=== PATIENT | female | born 1930 | race Caucasian/White ===

== ENCOUNTER 2019-08-10 11:52 | Emergency (ER) | payer MEDICARE ==
[~2019-08-10] VITALS: Ht 154.9 cm; Wt 73.5 kg
--- OUTSIDE RECORDS SUMMARY | ~2019-08-10 | XMS | Clinical Summary ---
Demographics + + + | Address | [address] | | | [place] [address] | + + + | Home Phone | | + + + | Preferred Language | Unknown | + + + | Marital Status | | + + + | Christianity Affiliation | Unknown | + + + | Race | Unknown | + + + | Ethnic Group | Unknown | + + + Author + + + | Author | [facility] (Historical as of | | | 06-22-19) | + + + | Organization | [facility] (Historical as of | | | 06-22-19) | + + + | Address | Unknown | + + + | Phone | Unavailable | + + + Care Team Providers + +------+ + | Care Bag Checker Name | Role | Phone | + +------+ + PP | Unavailable | + +------+ + Allergies Not on File Current Medications Not on file Active Problems Not on file Social History + +-------+ +--------+------+ | Tobacco Use | Types | Packs/Day | Years | Date | | | | | Used | | + +-------+ +--------+------+ | Never Assessed | | | | | + +-------+ +--------+------+ + + + | Sex Assigned at | Date Recorded | | | | + + + | Not on file | | + + + Plan of Treatment + + + + + | Health Maintenance | Due Date | Last Done | Comments | + + + + + | Vaccine: | | | | | Dtap/Tdap/Td (1 - | 0 | | | | Tdap) | | | | + + + + + | Vaccine: Zoster (1 | | | | | of 2) | 1 | | | + + + + + | DEXA SCAN SCREENING | | | | | | 6 | | | + + + + + | Vaccine: | | | | | Pneumococcal 65+ | 6 | | | | Low/Medium Risk (1 | | | | | of 2 - PCV13) | | | | + + + + + | Vaccine: Influenza | | | | | (#1) | 9 | | | + + + + + Results Not on filefrom Last 3 Months Insurance + +--------+ +------+-------+ + | Payer | Benefi | Subscriber | Type | Phone | Address | | | t Plan | ID | | | | | | / | | | | | | | Group | | | | | + +--------+ +------+-------+ + | [facility] | [place] | [id number] | | | | | | | | | | | | | HEALTH | | | | | | | CARE - | | | | | | | AARP | | | | | + +--------+ +------+-------+ + | MEDICARE | MEDICA | [id number] | | | [address] | | | RE | | | | [place] [address] | | | IP-OP | | | | | + +--------+ +------+-------+ + + +--------+ +--------+ + + | Guarantor Name | Accoun | Relation to | Date | Phone | Billing Address | | | t Type | Patient | of | | | | | | | | | | + +--------+ +--------+ + + | DIONE MALDONADO | Person | Self | [birth year] | 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
--- OUTSIDE RECORDS SUMMARY | ~2019-08-10 | XMS | Clinical Summary ---
Demographics + + + | Address | [address] | | | [place] [address] | + + + | Home Phone | | + + + | Preferred Language | Unknown | + + + | Marital Status | | + + + | Spiritism Affiliation | Unknown | + + + | Race | Unknown | + + + | Ethnic Group | Unknown | + + + Author + + + | Author | [facility] | | | and [place] | + + + | Organization | 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 For more information, please contact:[facility] [place] [address] + + + + + | Code Status | Date | Date | Comments | | | Activated | Inactivated | | + + + + + | Full Code | 07/05/2016 | 07/06/2016 | | | | 11:11 | 12:53 | | + + + + +
--- OUTSIDE RECORDS SUMMARY | ~2019-08-10 | XMS | Clinical Summary ---
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 For more information, please contact:[facility] [place] [address] + + + + + | Code Status | Date | Date | Comments | | | Activated | Inactivated | | + + + + + | Full Code | 07/05/2016 | 07/06/2016 | | | | 11:11 | 12:53 | | + + + + +
--- OUTSIDE RECORDS SUMMARY | ~2019-08-10 | XMS | Clinical Summary ---
Demographics + + + | Address | [address] | | | [place] [address] | + + + | Home Phone | | + + + | Preferred Language | Unknown | + + + | Marital Status | | + + + | Restorationism Affiliation | Unknown | + + + | Race | Unknown | + + + | Ethnic Group | Unknown | + + + Author + + + | Author | [facility] (Historical as of | | | 06-22-19) | + + + | Organization | [facility] (Historical as of | | | 06-22-19) | + + + | Address | Unknown | + + + | Phone | Unavailable | + + + Care Team Providers + +------+ + | Care Maintenance Mechanic Name | Role | Phone | + [...] | | + +--------+ +------+-------+ + | [facility] | [place] | [phone] | | | | | | | | | | | | | HEALTH | | | | | | | CARE - | | | | | | | AARP | | | | | + +--------+ +------+-------+ + | MEDICARE | MEDICA | [id number] | | | [address] | | | RE | | | | [place] [phone] | | | IP-OP | | | [...] | | al/Fam | | 1930 | [phone] | [place] [address] | | | cecilio | | | [address]: | | | | | | | | | | | | | | [phone] | | | | | | | 1095 | | + +--------+ +--------+ + +"
[~2019-08-10 11:52] MED LIST: CARTIA XT120 MG PO; CELECOXIB200 MG PO; COREG6.25 MG PO; COUMADIN6 MG PO; DICLOFENAC SOD100 G1 TOP; DIGOXIN125 MCG PO; DILTIAZEM HCL120 MG PO; FUROSEMIDE40 MG PO; LISINOPRIL20 MG PO; NORCO 5-325 TA1 EACH PO; PROZAC10 MG PO; SYNTHROID75 MCG PO; SYNTHROID88 MCG PO; TRAMADOL HCL50 MG
[2019-08-10] MEDS ORDERED: LISINOPRIL40 MG PO (14:27)
--- NOTE | 2019-08-10 14:53 | EKG ---
[facility] [address] [facility] [place], [place] [address] Signed Sinus rhythm with occasional premature ventricular complexes Left ventricular hypertrophy with repolarization abnormality Inferior infarct , age undetermined Abnormal ECG No previous ECGs available Confirmed by CIERA NARVAEZ DO ([id number]) on 08/10/2019 2:53:38 PM Electronically Signed By: CIERA NARVAEZ DO 08/10/19 1453 PATIENT NAME: DIONE KLINE Electrocardiogram DATE OF : [birth year] PHYSICIAN: CIERA NARVAEZ DO REPORT #: [id number] REPORT IS CONFIDENTIAL AND NOT TO BE RELEASED WITHOUT AUTHORIZATION
== END 2019-08-10 15:20 | disposition home or self-care (01) ==
LOC: ED 11:52
DX: R53.1 Weakness (principal); I10 Essential (primary) hypertension; I48.91 Unspecified atrial fibrillation; E03.9 Hypothyroidism, unspecified; Z88.0 Allergy status to penicillin; Z88.8 Allergy status to other drugs, medicaments and biological substances; Z79.899 Other long term (current) drug therapy; Z79.01 Long term (current) use of anticoagulants
CPT/HCPCS: 71045; 80053; 84484; 85025; 93005; 93010; 96374; 96376; 99285-25

== ENCOUNTER 2019-08-24 09:35 | Emergency (ER) | payer MEDICARE ==
[~2019-08-24] VITALS: Ht 154.9 cm; Wt 73.5 kg
--- OUTSIDE RECORDS SUMMARY | ~2019-08-24 | XMS | Clinical Summary ---
Demographics + + + | Address | [address] | | | [place] [address] | + + + | Home Phone | | + + + | Preferred Language | Unknown | + + + | Marital Status | | + + + | Quaker Affiliation | Unknown | + + + | Race | Unknown | + + + | Ethnic Group | Unknown | + + + Author + + + | Author | [facility] | | | and [place] | + + + | Organization | [facility] | | | and [place] | + + + | Address | Unknown | + + + | Phone | Unavailable | + + + Support + + +---------+ + | Name | Relationship | Address | Phone | + + +---------+ + | Markell Daly | ECON | Unknown | | + + +---------+ + Care Team Providers + +------+ + | Care Senior Sas Programmer Name | Role | Phone | + +------+ + | Elizabeth Smiley | PCP | | + +------+ + Allergies + + + + + + | Active Allergy | Reactions | Severity | Noted | Comments | | | | | Date | | + + + + + + | Celecoxib | Hives, Rash | Low | 06/27/20 | | | | | | 16 | | + + + + + + | Penicillins | Hives, Rash | Low | 06/27/20 | | | | | | 16 | | + + + + + + Medications + + + +---------+------+------+-------+ | Medication | Sig | Dispensed | Refills | Star | End | Statu | | | | | | t | Date | s | | | | | | Date | | | + + + +---------+------+------+-------+ | acetaminophen | Take 650 mg by mouth | | 0 | | | Activ | | (TYLENOL ARTHRITIS | every 8 hours as | | | | | e | | PAIN) 650 MG CR | needed for Pain. | | | | | | | tablet | | | | | | | + + + +---------+------+------+-------+ | furosemide (LASIX) | Take 40 mg by mouth | | 0 | | | Activ | | 40 mg tablet | Daily. | | | | | e | + + + +---------+------+------+-------+ | lisinopril | Take 20 mg by mouth | | 0 | | | Activ | | (PRINIVIL, ZESTRIL) | 2 times daily. | | | | | e | | 20 mg tablet | | | | | | | + + + +---------+------+------+-------+ | Multiple | Take by mouth. | | 0 | | | Activ | | Vitamins-Minerals | | | | | | e | | (PRESERVISION AREDS) | | | | | | | | CAPS | | | | | | | + + + +---------+------+------+-------+ | | Take 1 tablet by | | 0 | 07/2 | | Activ | | HYDROcodone-acetamin | mouth every 6 hours | | | 9/20 | | e | | ophen (NORCO) | as needed for Pain. | | | 16 | | | | 7.5-325 mg per | | | | | | | | tablet | | | | | | | + + + +---------+------+------+-------+ | diltiazem | Take 120 mg by mouth | | 0 | | | Activ | | (CARDIZEM CD) 120 mg | every evening. | | | | | e | | 24 hr capsule | | | | | | | + + + +---------+------+------+-------+ | lactulose 10 g/15 | Take 30 mLs by mouth | 240 mL | 2 | 08/3 | | Activ | | mL solution | Daily as needed. | | | 1/20 | | e | | | | | | 16 | | | + + + +---------+------+------+-------+ | | Take 1-2 tablets by | 120 | 0 | 08/3 | | Activ | | oxyCODONE-acetaminop | mouth every 4 hours | tablet | | 1/20 | | e | | hen (PERCOCET) 5-325 | as needed for Pain. | | | 16 | | | | mg per tablet | | | | | | | + + + +---------+------+------+-------+ | levothyroxine | TAKE 1 TABLET EVERY | 90 | 3 | 08/0 | | Activ | | (SYNTHROID) 75 MCG | DAY | tablet | | 7/20 | | e | | tablet | | | | 18 | | | + + + +---------+------+------+-------+ | digoxin (LANOXIN) | TAKE 1 TABLET EVERY | 90 | 3 | 08/0 | | Activ | | 125 mcg tablet | DAY | tablet | | 720 | | e | | | | | | 18 | | | + + + +---------+------+------+-------+ Active Problems + + + | Problem | Noted Date | + + + | H/O total knee replacement, left | 07/04/2016 | + + + | H/O Hysterectomy | 07/04/2016 | + + + | Neoplasm of thoracic spine | 07/04/2016 | + + + + + | Overview: MRI from 2015 shows chronic degenerative changes | | and a posterior T12 based extradural lesion dark on T1 and bright | | on T2 imaging | + + + + + | Class I, BMI 30-34.9 | 07/04/2016 | + + + | 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 | 07/04/2016 | + + + | Atrial fibrillation | | + + + | Benign hypertension | | + + + | Subclinical hypothyroidism | | + + + | Dyslipidemia | | + + + | Acquired cyst of kidney | | + + + | Spondylosis, lumbosacral region | | + + + | Chronic lower back pain | | + + + Family History + + +------+ + | Medical History | Relation | Name | Comments | + + +------+ + | No known problems | Child | | | + + +------+ + | No known problems | Child | | | + + +------+ + | Brain aneurysm | Father | | | + + +------+ + | Stroke | Maternal | | | | | Aunt | | | + + +------+ + | No known problems | Maternal | | | | | Grandfath | | | | | er | | | + + +------+ + | No known problems | Maternal | | | | | Grandmoth | | | | | er | | | + + +------+ + | Colon cancer | Mother | | | + + +------+ + | No known problems | Paternal | | | | | Grandfath | | | | | er | | | + + +------+ + | No known problems | Paternal | | | | | Grandmoth | | | | | er | | | + + +------+ + | Bleeding problems | Sister | | blood clot | + + +------+ + + +------+--------+ + | Relation | Name | Status | Comments | + +------+--------+ + | Child | | | | + +------+--------+ + | Child | | | | + +------+--------+ + | Father | | | | + +------+--------+ + | Maternal Aunt | | | | + +------+--------+ + | Maternal Grandfather | | | | + +------+--------+ + | Maternal Grandmother | | | | + +------+--------+ + | Mother | | | | + +------+--------+ + | Paternal Grandfather | | | | + +------+--------+ + | Paternal Grandmother | | | | + +------+--------+ + | Sister | | | | + +------+--------+ + Social History + +-------+ +--------+------+ | Tobacco Use | Types | Packs/Day | Years | Date | | | | | Used | | + +-------+ +--------+------+ | Never Smoker | | | | | + +-------+ +--------+------+ + +---+---+---+ | Smokeless Tobacco: | | | | | Never Used | | | | + +---+---+---+ + + +---------+ + | Alcohol Use | Drinks/We | oz/Week | Comments | | | ek | | | + + +---------+ + | Yes | 0 | 0.6 | | | | Standard | | | | | drinks or | | | | | | | | | | equivalen | | | | | t 1 Cans | | | | | of beer | | | + + +---------+ + + + + | Sex Assigned at | Date Recorded | | | | + + + | Not on file | | + + + + + + + | Job Start Date | Occupation | Industry | + + + + | Not on file | Not on file | Not on file | + + + + + + + + | Travel History | Travel Start | Travel End | + + + + + + | No recent travel history available. | + + Last Filed Vital Signs + + + + | Vital Sign | Reading | Time Taken | + + + + | Blood Pressure | 138/78 | 08/03/20161023 PDT | + + + + | Pulse | 77 | 08/03/20161023 PDT | + + + + | Temperature | 35.6 C (96.1 F) | 07/06/2016744 PDT | + + + + | Respiratory Rate | 16 | 07/06/2016744 PDT | + + + + | Oxygen Saturation | 96% | 07/06/2016744 PDT | + + + + | Inhaled Oxygen | - | - | | Concentration | | | + + + + | Weight | 79.9 kg (176 lb 3.2 | 08/03/20161023 PDT | | | oz) | | + + + + | Height | 154.9 cm (5' 1") | 08/03/20161023 PDT | + + + + | Body Mass Index | 33.29 | 08/03/20161023 PDT | + + + + Plan of Treatment + [...] | + + + + + | Adult Annual | | | | | Wellness Visit | 5 | | | + + + + + | Primary Care | | 06/28/2016 | | | Outreach (Intense | 6 | | | | Risk) | | | | + + + + + | Vaccine: Influenza | | | | | (#1) | 9 | | | + + + + + Results Not on filefrom Last 3 Months Insurance + +--------+ +--------+ +---------+--------+ | Payer | Benefi | Subscriber | Effect | Phone | Address | Type | | | t Plan | ID | jaida | | | | | | / | | Dates | | | | | | Group | | | | | | + +--------+ +--------+ +---------+--------+ | MEDICARE | MEDICA | [id number] | 04/06/19 | [phone] | | Medica | | | RE | | 96-Pre | 5 | | re | | | PART A | | sent | | | | | | AND B | | | | | | + +--------+ +--------+ +---------+--------+ | AARP | AARP | [id number] | 05/06/20 | [phone] | | Indemn | | | MDCR | | 16-Pre | 0 | | ity | | | SUPPL | | sent | | | | + +--------+ +--------+ +---------+--------+ + +--------+ +--------+ + + | Guarantor Name | Accoun | Relation to | Date | Phone | Billing Address | | | t Type | Patient | of | | | | | | | | | | + +--------+ +--------+ + + | Ayde Maldonado | Person | Self | [birth year] | [address] | | [place] | al/Fam | | 1930 | [phone] | [place] [address] | | | cecilio | | | 5 (Home) | | + +--------+ +--------+ + + Advance Directives Patient has advance care planning documents, and code status on file. For more information, please contact:[facility] [place] [address] + + + + + | Code Status | Date | Date | Comments | | | Activated | Inactivated | | + + + + + | Full Code | 07/05/2016 | 07/06/2016 | | | | 11:11 | 12:53 | | + + + + +
--- OUTSIDE RECORDS SUMMARY | ~2019-08-24 | XMS | Clinical Summary ---
Demographics + + + | Address | [address] | | | [place] [address] | + + + | Home Phone | | + + + | Preferred Language | Unknown | + + + | Marital Status | | + + + | Mosque Affiliation | Unknown | + + + | Race | Unknown | + + + | Ethnic Group | Unknown | + + + Author + + + | Author | [facility] (Historical as of | | | 06-22-19) | + + + | Organization | [facility] (Historical as of | | | 06-22-19) | + + + | Address | Unknown | + + + | Phone | Unavailable | + + + Care Team Providers + +------+ + | Care Turntable Worker Name | Role | Phone | + [...] | | + +--------+ +------+-------+ + | [facility] | [place] | [id number] | | | | | | | | | | | | | HEALTH | | | | | | | CARE - | | | | | | | AARP | | | | | + +--------+ +------+-------+ + | MEDICARE | MEDICA | [id number] | | | [address] | | | RE | | | | [place] [address] | | | IP-OP | | | [...] | | al/Fam | | 1930 | [phone] | [place] [address] | | | cecilio | | | [address]: | | | | | | | | | | | | | | [phone] | | | | | | | 1095 | | + +--------+ +--------+ + +"
--- OUTSIDE RECORDS SUMMARY | ~2019-08-24 | XMS | Clinical Summary ---
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 For more information, please contact:[facility] [place] [address] + + + + + | Code Status | Date | Date | Comments | | | Activated | Inactivated | | + + + + + | Full Code | 07/05/2016 | 07/06/2016 | | | | 11:11 | 12:53 | | + + + + +
--- OUTSIDE RECORDS SUMMARY | ~2019-08-24 | XMS | Clinical Summary ---
Demographics + + + | Address | [address] | | | [place] [address] | + + + | Home Phone | | + + + | Preferred Language | Unknown | + + + | Marital Status | | + + + | Hoahaoism Affiliation | Unknown | + + + | Race | Unknown | + + + | Ethnic Group | Unknown | + + + Author + + + | Author | [facility] (Historical as of | | | 06-22-19) | + + + | Organization | [facility] (Historical as of | | | 06-22-19) | + + + | Address | Unknown | + + + | Phone | Unavailable | + + + Care Team Providers + +------+ + | Care Information Officer Name | Role | Phone | + [...] | | + +--------+ +------+-------+ + | [facility] | [place] | [id number] | | | | | | | | | | | | | HEALTH | | | | | | | CARE - | | | | | | | AARP | | | | | + +--------+ +------+-------+ + | MEDICARE | MEDICA | [id number] | | | [address] | | | RE | | | | [place] [address] | | | IP-OP | | | [...] | | al/Fam | | 1930 | [phone] | [place] [address] | | | cceilio | | | [phone]: | | | | | | | | | | | | | | [phone] | | | | | | | 1095 | | + +--------+ +--------+ + +"
[~2019-08-24 09:35] MED LIST changes: +LISINOPRIL40 MG PO
--- OUTSIDE RECORDS SUMMARY | 2019-08-24 09:38 | XMS ---
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 - 2 Visits in 30 Days CARE PROVIDERS Elizabeth Smiley PA-C Treatment Current PHONE: Unknown Son has no Care Guidelines for this patient. Judit VISIT COUNT (12 MO.) 2 [facility] TOTAL 2 NOTE: Visits indicate total known visits. 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
--- NOTE | 2019-08-24 11:09 | EKG ---
[facility] [address] [facility] [place], [place] [address] Signed Normal sinus rhythm Inferior infarct (cited on or before 10-AUG-2019) Abnormal ECG When compared with ECG of 10-AUG-2019 12:18, premature ventricular complexes are no longer present Confirmed by CIERA NARVAEZ DO ([id number]) on 08/24/2019 11:08:42 AM Electronically Signed By: CIERA NARVAEZ DO 08/24/19 1109 PATIENT NAME: DIONE KLINE Electrocardiogram DATE OF : [birth year] PHYSICIAN: CIERA NARVAEZ DO REPORT #: [id number] REPORT IS CONFIDENTIAL AND NOT TO BE RELEASED WITHOUT AUTHORIZATION
[2019-08-24] MEDS ORDERED: OXYCODONE HCL5 MG PO (11:53)
[2019-08-24] MEDS ORDERED: PREDNISONE20 MG PO (11:53)
[2019-08-24] MEDS ORDERED: KEPPRA250 MG PO (11:53)
== END 2019-08-24 12:10 | disposition home or self-care (01) ==
LOC: ED 09:35
DX: D32.0 Benign neoplasm of cerebral meninges (principal); I10 Essential (primary) hypertension; E03.9 Hypothyroidism, unspecified; I48.91 Unspecified atrial fibrillation; Z88.0 Allergy status to penicillin; Z79.01 Long term (current) use of anticoagulants; Z79.899 Other long term (current) drug therapy
CPT/HCPCS: 70450; 71045; 80053; 84484; 85025; 85610; 85730; 93005; 93010; 99284-25